=== PATIENT | female | born 1985 | race Caucasian/White ===

== ENCOUNTER 2016-11-13 22:17 | Emergency (ER) | payer BC ==
[2016-11-13 22:23] VITALS: RESP 18
[2016-11-13] MEDS ORDERED: SODIUM CHLORIDE 0.9% 1,000 ML IV ONE (22:53)
[2016-11-13] MEDS ORDERED: DICYCLOMINE 10 MG CAP PO STA (22:53)
--- NOTE | 2016-11-13 22:58 | ED ---
Abdominal Pain HPI - General Chief Complaint: Abdominal Pain Stated Complaint: Abd Pain Time Seen by Provider: 11/13/16 22:25 Source: patient, RN notes reviewed Mode of arrival: ambulatory Limitations: no limitations - History of Present Illness Initial Comments: Patient is a 31-year-old female presents to the emergency room for evaluation of abdominal pain and diarrhea. Patient states over the past week she been having lower abdominal cramping associated with diarrhea. Patient states that she went to [facility] clinic didn't do anything for her. Patient states today she had an episode of extreme nausea and vomited. Patient states that she still continuing to have diarrhea. Patient states her stools are very loose. Patient states the pain intensifies when she is about to have an episode of diarrhea. Patient denies recent travel outside the country. Patient denies coming in contact with anyone outside the country. Patient denies trying new foods. Patient denies history of C. diff. Patient's chest, and contact with anyone who has C. diff. Patient denies any blood in the stools. Patient denies history of diverticulitis, ulcerative colitis or Crohn' s disease. Patient denies any fevers or chills. Patient denies chest pain, shortness of breath, headache, dizziness. Patient denies pain or burning during urination, trouble urinating or blood in urine. Patient states she has a history of gastric bypass in 2010 and cholecystectomy 2011. Patient denies any issues following those surgeries. - Related Data Previous Rx's Medication Instructions Recorded Dicyclomine [Bentyl] 10 mg PO TID PRN #12 capsule 11/14/16 Ondansetron Odt [Zofran Odt] 4 mg PO Q8HR PRN #12 tab 11/14/16 Allergies Allergy/AdvReac Type Severity Reaction Status Date / Time No Known Allergies Allergy Verified 11/13/16 22:40 Review of Systems ROS Statement: Those systems with pertinent positive or pertinent negative responses have been documented in the HPI. ROS Other: All systems not noted in ROS Statement are negative. Past Medical History Past Medical History: No Reported History History of Any Multi-Drug Resistant Organisms: None Reported Past Surgical History: Bariatric Surgery, Cholecystectomy Additional Past Surgical History / Comment(s): Sleeve Gastrectomy Past Psychological History: No Psychological Hx Reported Smoking Status: Never smoker Past Alcohol Use History: None Reported Past Drug Use History: None Reported General Exam - General Exam Comments Initial Comments: Sitting in exam room, no acute distress. Limitations: no limitations General appearance: alert, in no apparent distress Head exam: Present: atraumatic, normocephalic, normal inspection Eye exam: Present: normal appearance ENT exam: Present: normal exam Neck exam: Present: normal inspection Respiratory exam: Present: normal lung sounds bilaterally. Absent: respiratory distress Cardiovascular Exam: Present: regular rate, normal rhythm, normal heart sounds GI/Abdominal exam: Present: soft, normal bowel sounds. Absent: distended, tenderness, guarding, rebound, rigid Extremities exam: Present: normal inspection Back exam: Present: normal inspection Neurological exam: Present: alert, oriented X3, CN II-XII intact, normal gait Psychiatric exam: Present: normal affect, normal mood Skin exam: Present: warm, dry, intact, normal color. Absent: rash Course Vital Signs 11/13/16 11/14/16 22:21 01:40 Temperature 98.3 F 97.7 F Pulse Rate 87 57 L Respiratory 18 18 Rate Blood Pressure 163/70 123/63 O2 Sat by Pulse 98 100 Oximetry Medical Decision Making - Medical Decision Making Patient is a 31-year-old female presents emergency room for evaluation of abdominal pain and diarrhea. CT of abdomen/pelvis significant for colitis. Advised patient to stick to clear liquids diet for the next 1-2 days and to follow-up with GI specialist or primary care provider. Patient states she understands everything that was discussed with her. Return parameters discussed. Case discussed with Dr. Young. - Lab Data Result diagrams: 11/13/16 23:03 11/13/16 23:03 Lab Results 11/13/16 11/13/16 11/13/16 Range/Units 23:03 23:03 23:03 WBC 13.0 H (3.8-10.6) k/uL RBC 4.70 (3.80-5.40) m/uL Hgb 11.0 L (11.4-16.0) gm/dL Hct 34.9 (34.0-46.0) % MCV 74.2 L (80.0-100.0) fL MCH 23.3 L (25.0-35.0) pg MCHC 31.4 (31.0-37.0) g/dL RDW 15.0 (11.5-15.5) % Plt Count 371 (150-450) k/uL Neutrophils % 74 % Lymphocytes % 20 % Monocytes % 4 % Eosinophils % 1 % Basophils % 0 % Neutrophils # 9.6 H (1.3-7.7) k/uL Lymphocytes # 2.6 (1.0-4.8) k/uL Monocytes # 0.5 (0-1.0) k/uL Eosinophils # 0.1 (0-0.7) k/uL Basophils # 0.0 (0-0.2) k/uL Hypochromasia Moderate Microcytosis Slight Sodium 141 (137-145) mmol/L Potassium 3.9 (3.5-5.1) mmol/L Chloride 106 (98-107) mmol/L Carbon Dioxide 25 (22-30) mmol/L Anion Gap 10 mmol/L BUN 18 H (7-17) mg/dL Creatinine 0.60 (0.52-1.04) mg/dL Est GFR (MDRD) Af Amer >60 (>60 ml/min/1.73 sqM) Est GFR (MDRD) Non-Af >60 (>60 ml/min/1.73 sqM) Glucose 100 H (74-99) mg/dL Calcium 8.8 (8.4-10.2) mg/dL Total Bilirubin 0.3 (0.2-1.3) mg/dL AST 18 (14-36) U/L ALT 23 (9-52) U/L Alkaline Phosphatase 61 (38-126) U/L Total Protein 6.4 (6.3-8.2) g/dL Albumin 3.7 (3.5-5.0) g/dL Amylase <30 L (30-110) U/L Lipase 70 (23-300) U/L Urine Color Urine Appearance (Clear) Urine pH (5.0-8.0) Ur Specific [place] (1.001-1.035) Urine Protein (Negative) Urine Glucose (UA) (Negative) Urine Ketones (Negative) Urine Blood (Negative) Urine Nitrate (Negative) Urine Bilirubin (Negative) Urine Urobilinogen (<2.0) mg/dL Ur Leukocyte Esterase (Negative) Urine HCG, Qual Not Detected (Not Detectd) 11/13/16 Range/Units 23:03 WBC (3.8-10.6) k/uL RBC (3.80-5.40) m/uL Hgb (11.4-16.0) gm/dL Hct (34.0-46.0) % MCV (80.0-100.0) fL MCH (25.0-35.0) pg MCHC (31.0-37.0) g/dL RDW (11.5-15.5) % Plt Count (150-450) k/uL Neutrophils % % Lymphocytes % % Monocytes % % Eosinophils % % Basophils % % Neutrophils # (1.3-7.7) k/uL Lymphocytes # (1.0-4.8) k/uL Monocytes # (0-1.0) k/uL Eosinophils # (0-0.7) k/uL Basophils # (0-0.2) k/uL Hypochromasia Microcytosis Sodium (137-145) mmol/L Potassium (3.5-5.1) mmol/L Chloride (98-107) mmol/L Carbon Dioxide (22-30) mmol/L Anion Gap mmol/L BUN (7-17) mg/dL Creatinine (0.52-1.04) mg/dL Est GFR (MDRD) Af Amer (>60 ml/min/1.73 sqM) Est GFR (MDRD) Non-Af (>60 ml/min/1.73 sqM) Glucose (74-99) mg/dL Calcium (8.4-10.2) mg/dL Total Bilirubin (0.2-1.3) mg/dL AST (14-36) U/L ALT (9-52) U/L Alkaline Phosphatase (38-126) U/L Total Protein (6.3-8.2) g/dL Albumin (3.5-5.0) g/dL Amylase (30-110) U/L Lipase (23-300) U/L Urine Color Yellow Urine Appearance Clear (Clear) Urine pH 6.5 (5.0-8.0) Ur Specific [place] 1.021 (1.001-1.035) Urine Protein Negative (Negative) Urine Glucose (UA) Negative (Negative) Urine Ketones Negative (Negative) Urine Blood Negative (Negative) Urine Nitrate Negative (Negative) Urine Bilirubin Negative (Negative) Urine Urobilinogen <2.0 (<2.0) mg/dL Ur Leukocyte Esterase Negative (Negative) Urine HCG, Qual (Not Detectd) - Radiology Data Radiology results: report reviewed, image reviewed Disposition Clinical Impression: Colitis Disposition: HOME SELF-CARE Condition: Good Instructions: Colitis (ED) Additional Instructions: Drink plenty of fluids. Clear liquid diet for the next 1-2 days. Please follow up with primary care provider in 1-2 days. If any new symptom arises, symptoms worsen or fever develops, return to ER as soon as possible. Prescriptions: Ondansetron Odt [Zofran Odt] 4 mg PO Q8HR PRN #12 tab PRN Reason: Nausea Dicyclomine [Bentyl] 10 mg PO TID PRN #12 capsule PRN Reason: Pain Referrals: Desi Romo MD [STAFF PHYSICIAN] - 1-2 days None,Stated [Primary Care Provider] - 1-2 days Time of Disposition: 01:21
[2016-11-13 23:23] LABS: Appearance,Urine Clear (Clear); Bilirubin,Urine Negative (Negative); Glucose,Urine (UA) Negative (Negative); Ketones,Urine Negative (Negative); Leukocyte Esterase,Urine Negative (Negative); Nitrite,Urine Negative (Negative); PH, Urine 6.5 (5.0-8.0); Protein,Urine Negative (Negative); Specific Gravity,Urine 1.021 (1.001-1.035); UA Billing (MACRO vs. MICRO) CHEM; Urobilinogen,Urine <2.0 mg/dL (<2.0)
[2016-11-13 23:29] LABS: Basophils % (A) 0 %; CHCM 31.1; Eosinophils # (A) 0.1 k/uL (0-0.7); Eosinophils % (A) 1 %; HCT 34.9 % (34.0-46.0); HDW 2.78; Hypochromasia Moderate; Luc # (Auto) 0.16; Luc % (Auto) 1; Lymphocytes # (A) 2.6 k/uL (1.0-4.8); Lymphocytes % (A) 20 %; MCH 23.3 pg (25.0-35.0); MCHC 31.4 g/dL (31.0-37.0); MCV 74.2 fL (80.0-100.0); Microcytosis Slight; Monocytes # (A) 0.5 k/uL (0-1.0); Monocytes % (A) 4 %; Neutrophils # (A) 9.6 k/uL (1.3-7.7); Neutrophils % (A) 74 %; WBC (Perox) 13.09
[2016-11-13 23:32] LABS: ALT 23 U/L (9-52); AST 18 U/L (14-36); Alkaline Phosphatase 61 U/L (38-126); Amylase <30 U/L (30-110); Anion Gap 10 mmol/L; Blood Urea Nitrogen 18 mg/dL (7-17); Calcium 8.8 mg/dL (8.4-10.2); Carbon Dioxide 25 mmol/L (22-30); Chloride 106 mmol/L (98-107); Glucose 100 mg/dL (74-99); Non-African American GFR(MDRD) >60 (>60 ml/min/1.73 sqM); Potassium 3.9 mmol/L (3.5-5.1); Sodium 141 mmol/L (137-145); Total Bilirubin 0.3 mg/dL (0.2-1.3); Total Protein 6.4 g/dL (6.3-8.2)
--- NOTE | 2016-11-13 23:47 | XR ---
EXAMINATION TYPE: XR KUB DATE OF EXAM: 11/13/2016 11:41 PM CLINICAL HISTORY: Lower abdominal pain for 2 days vomiting and diarrhea. TECHNIQUE: 2 upright radiographs of abdomen were obtained in frontal projection. COMPARISON: None FINDINGS: Scattered gas is seen in non-distended small bowel loops. Gas and fecal material is seen in non-distended colon. There is no visceromegaly, pneumoperitoneum, or abnormal calcification appr eciated. The lung bases are clear and the osseous structures are intact. Surgical clips are noted in the left upper abdomen. IMPRESSION: Overall nonobstructive bowel gas pattern.
[2016-11-14] MEDS ORDERED: RX INFO: IV CONTRAST WAS GIVEN 1 EACH MISC MISCELLANE PRN (00:35)
--- NOTE | 2016-11-14 01:15 | CT ---
EXAMINATION TYPE: CT abdomen pelvis w con DATE OF EXAM: 11/14/2016 12:56 AM COMPARISON: NONE HISTORY: Nausea, vomiting, Diarrhea, Mid to Lower abd pain CT DLP: 1540.40 mGycm Automated exposure control for dose reduction was used. TECHNIQUE: Helical acquisition of images was performed from the lung bases through the pelvis. CONTRAST: Performed without Oral Contrast and with IV Contrast, patient injected with 100 mL of Omnipaque 300. FINDINGS: LUNG BASES: Mild scarring is suggested in the left lung base anteriorly. LIVER/GB: No significant abnormality is appreciated in the liver. Gallbladder is probably surgically absent. PANCREAS: No significant abnormality is seen. SPLEEN: No significant abnormality is seen. ADRENALS: No significant abnormality is seen. KIDNEYS: No significant abnormality is seen. REPRODUCTIVE ORGANS: Uterus showed mild endometrial thickening. There is 4 cm cyst in the right ovary . Left ovary is not well visualized. Minor cystic changes are suggested in the left ovary. No signifi cant free fluid collection is noted in the adnexa and cul-de-sac. URINARY BLADDER: No significant abnormality is seen. PELVIC ADENOPATHY: None visualized. OSSEOUS STRUCTURES: No significant abnormality is seen. BOWEL: Postsurgical changes of gastric sleeve are suggested in the stomach. Small bowel loops showed mild fluid distention without significant obstruction. [id number]-uk-[id number] fecal material is noted in the colon. There is mild to moderate colonic diverticulos is. Mild mucosal thickening is noted in the sigmoid and descending colon and possibility of mild colitis changes cannot be excluded in the coronal image 34. The appendix is not well visualized. No significant inflammation is noted in the appendix area. IMPRESSION: 1. POSSIBLE COLITIS CHANGES INVOLVING SIGMOID AND DESCENDING COLON. COLONIC DIVERTICULOSIS. 2. 4 CM CYST IS NOTED IN THE RIGHT OVARY. AN ULTRASOUND STUDY WOULD BE HELPFUL IN THE EVALUATION. 3. POSTSURGICAL CHANGES IN THE STOMACH OF PROBABLY GASTRIC SLEEVE SURGERY. 4. THE APPENDIX IS NOT WELL VISUALIZED. NO SIGNIFICANT INFLAMMATION IS NOTED IN THE APPENDIX AREA.
[2016-11-14 01:40] VITALS: BP 123/63; PULSE 57; TEMP 97.7
== END 2016-11-14 01:40 | disposition home or self-care (01) ==
LOC: EC 22:17
DX: K52.9 Noninfective gastroenteritis and colitis, unspecified (principal)
CPT/HCPCS: 99284; 96360; 36415; 80053; 82150; 83690; 85025; 81003; 81025; 74000; 74177; Q9967

== ENCOUNTER 2017-09-18 18:33 | Inpatient (IN) | payer BC ==
--- NOTE | 2017-09-18 19:34 | ED ---
Psych HPI - General Chief Complaint: Psychiatric Symptoms Stated Complaint: Mental Health Time Seen by Provider: 09/18/17 19:03 Source: patient, RN notes reviewed Mode of arrival: ambulatory - History of Present Illness Initial Comments: This is a 32-year-old female history depression and anxiety who states she's feeling very anxious. She also feels depressed and suicidal but she has no plan. She states she just not feeling right she is on medications that she believes that working. She has a fevers chills sweats nausea vomiting she denies any alcohol or street drugs. MD Complaint: suicidal ideation, feels depressed, other - Related Data Home Medications Medication Instructions Recorded Confirmed OLANZapine ODT [ZyPREXA ZYDIS] 5 mg PO DAILY PRN 09/18/17 09/18/17 lamoTRIgine [LaMICtal] 50 mg PO BID 09/18/17 09/18/17 traZODone HCL 50 mg PO HS 09/18/17 09/18/17 Allergies Allergy/AdvReac Type Severity Reaction Status Date / Time No Known Allergies Allergy Verified 09/18/17 19:30 Review of Systems ROS Statement: Those systems with pertinent positive or pertinent negative responses have been documented in the HPI. ROS Other: All systems not noted in ROS Statement are negative. Past Medical History Past Medical History: No Reported History History of Any Multi-Drug Resistant Organisms: None Reported Past Surgical History: Bariatric Surgery, Cholecystectomy Additional Past Surgical History / Comment(s): Sleeve Gastrectomy Past Psychological History: Anxiety, Bipolar, PTSD Smoking Status: Never smoker Past Alcohol Use History: None Reported Past Drug Use History: None Reported General Exam - General Exam Comments Initial Comments: This is a well-developed well-nourished awake alert oriented 3 female Limitations: no limitations General appearance: alert, in no apparent distress Head exam: Present: atraumatic, normocephalic, normal inspection Eye exam: Present: normal appearance, PERRL, EOMI. Absent: scleral icterus, conjunctival injection, periorbital swelling ENT exam: Present: normal exam, mucous membranes moist Neck exam: Present: normal inspection. Absent: tenderness, meningismus, lymphadenopathy Respiratory exam: Present: normal lung sounds bilaterally. Absent: respiratory distress, wheezes, rales, rhonchi, stridor Cardiovascular Exam: Present: regular rate, normal rhythm, normal heart sounds. Absent: systolic murmur, diastolic murmur, rubs, gallop, clicks GI/Abdominal exam: Present: soft, normal bowel sounds. Absent: distended, tenderness, guarding, rebound, rigid Extremities exam: Present: normal inspection, full ROM, normal capillary refill. Absent: tenderness, pedal edema, joint swelling, calf tenderness Back exam: Present: normal inspection Neurological exam: Present: alert, oriented X3, CN II-XII intact Psychiatric exam: Present: depressed, anxious, suicidal ideation Skin exam: Present: warm, dry, intact, normal color. Absent: rash Course Vital Signs 09/18/17 19:14 Temperature 98 F Pulse Rate 100 Respiratory 18 Rate Blood Pressure 139/76 O2 Sat by Pulse 98 Oximetry Medical Decision Making - Medical Decision Making The patient was evaluated by the psychiatric service and will be admitted for inpatient treatment. Disposition Clinical Impression: Depression, Suicidal ideation Disposition: TRANSFER TO PSYCH HOSP/UNIT Condition: Stable Referrals: Natacha Galloway DO [Primary Care Provider] - 1-2 days
[2017-09-18] MEDS ORDERED: LORazepam 1 MG TAB PO PRN (23:11)
[2017-09-18] MEDS ORDERED: MAGNESIUM HYDROXIDE 2,400 MG/10 ML CUP PO PRN (23:11)
[2017-09-18] MEDS ORDERED: ACETAMINOPHEN TAB 325 MG TAB PO PRN (23:11)
[2017-09-18] MEDS ORDERED: MAG HYDROX/AL HYDROX/SIMETH 30 ML CUP PO PRN (23:11)
[2017-09-18] MEDS ORDERED: OLANZapine ODT 5 MG TAB PO PRN (23:15)
[2017-09-18] MEDS ORDERED: traZODone HCL 50 MG TAB PO SCH (23:15)
[2017-09-18] MEDS: lamoTRIgine 25 MG TAB PO SCH (23:35)
[2017-09-19] MEDS: lamoTRIgine 25 MG TAB PO SCH ×2 (00:21→08:34)
[2017-09-19 02:25] VITALS: BMI 48.2
[2017-09-19 06:39] VITALS: BP 111/62; PULSE 67; RESP 16; TEMP 98.3
[2017-09-19 10:16] LABS: Basophils # (A) 0.1 k/uL (0-0.2); Basophils % (A) 1 %; CH 22.8; CHCM 30.3; Eosinophils # (A) 0.1 k/uL (0-0.7); Eosinophils % (A) 1 %; HCT 35.8 % (34.0-46.0); HDW 2.81; HGB 10.9 gm/dL (11.4-16.0); Hypochromasia Marked; Luc # (Auto) 0.12; Luc % (Auto) 1; Lymphocytes # (A) 2.4 k/uL (1.0-4.8); Lymphocytes % (A) 25 %; MCH 23.1 pg (25.0-35.0); MCHC 30.6 g/dL (31.0-37.0); MCV 75.7 fL (80.0-100.0); Mean Platelet Volume 7.3; Microcytosis Slight; Monocytes # (A) 0.5 k/uL (0-1.0); Monocytes % (A) 5 %; Neutrophils # (A) 6.7 k/uL (1.3-7.7); Neutrophils % (A) 68 %; RBC 4.72 m/uL (3.80-5.40); RDW 15.7 % (11.5-15.5); WBC 9.9 k/uL (3.8-10.6); WBC (Perox) 10.57
[2017-09-19 10:37] LABS: ALT 27 U/L (9-52); AST 14 U/L (14-36); Alkaline Phosphatase 70 U/L (38-126); Anion Gap 6 mmol/L; Blood Urea Nitrogen 16 mg/dL (7-17); Calcium 8.9 mg/dL (8.4-10.2); Carbon Dioxide 28 mmol/L (22-30); Chloride 106 mmol/L (98-107); Cholesterol 133 mg/dL (<200); Glucose 71 mg/dL (74-99); HDL Cholesterol 43 mg/dL (40-60); Non-African American GFR(MDRD) >60 (>60 ml/min/1.73 sqM); Potassium 4.1 mmol/L (3.5-5.1); Sodium 140 mmol/L (137-145); Total Bilirubin 0.1 mg/dL (0.2-1.3); Total Protein 6.3 g/dL (6.3-8.2)
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
== END 2017-09-19 11:36 | disposition home or self-care (01) | DRG 885 ==
LOC: EC 18:33 → 3MHU 22:38
PROVIDERS: ADMIT Psychiatry & Neurology Psychiatry; ATTEND Psychiatry & Neurology Psychiatry
DX: F33.9 Major depressive disorder, recurrent, unspecified (principal); R45.851 Suicidal ideations; F41.0 Panic disorder [episodic paroxysmal anxiety]; F43.10 Post-traumatic stress disorder, unspecified; Z79.899 Other long term (current) drug therapy; Z91.5 Personal history of self-harm; Z98.84 Bariatric surgery status
CPT/HCPCS: 80053; 80061; 80306; 81025; 82075; 83036; 84443; 85025; 99285